=== PATIENT | male | born 1970 | race Caucasian/White ===

== ENCOUNTER → 2019-03-13 | Outpatient (CLI) | payer OTHER ==
[~2019-03-13] MED LIST: AMLO5TAB9 PO; ASPI-808 PO; CEPH500C PO; IBUP-2055 PO; LISI-596 PO; LISI10TA2 PO; SIMV10TA PO
[2019-03-13 10:21] LABS: AMPHETAMINE SCREEN, URINE NEGATIVE (NEGATIVE); BARBITURATE SCREEN URINE NEGATIVE (NEGATIVE); BENZODIAZEPINES SCREEN URINE POSITIVE (NEGATIVE); CANNABINOID SCREEN, URINE POSITIVE (NEGATIVE); COCAINE SCREEN URINE NEGATIVE (NEGATIVE); METHADONE STAT NEGATIVE (NEGATIVE); METHAMPHETAMINE SCREEN URINE S NEGATIVE (NEGATIVE); OPIATE SCREEN URINE POSITIVE (NEGATIVE); OXYCODONE STAT NEGATIVE (NEGATIVE); PROPOXYPHENE STAT NEGATIVE (NEGATIVE); TRICYCLIC ANTIDEPRESSANTS SCRE NEGATIVE (NEGATIVE)
== END ==
LOC: LAB 09:44
PROVIDERS: ATTEND Family Medicine
DX: Z51.81 Encounter for therapeutic drug level monitoring (principal); Z79.899 Other long term (current) drug therapy
CPT/HCPCS: 80306

== ENCOUNTER → 2021-08-27 | Outpatient (CLI) | payer BC, OTHER ==
[~2021-08-27] MED LIST changes: +AMLO-250 PO; -AMLO5TAB9 PO; -IBUP-2055 PO; +IBUP-2473 PO
--- NOTE | 2021-08-27 12:48 | Diagnostic Imaging Report ---
INDICATION: Chronic right hip pain. FINDINGS: 2 views. There is a loss of joint space with [id number] appearance along the superior weightbearing surface of femoral head and acetabulum. There are considerable hypertrophic bony changes along the base of femoral head consistent with chronic impingement. Also hypertrophic change along the inferior aspect of the acetabulum. No fractures are demonstrated. No soft tissue calcifications about the hip. IMPRESSION: There is moderate severe arthritic change noted with right hip. Dictated by: Dictated on workstation # [id number]
== END ==
LOC: RAD 10:40
PROVIDERS: ATTEND Family Medicine
DX: M16.11 Unilateral primary osteoarthritis, right hip (principal)
CPT/HCPCS: 73502

== ENCOUNTER → 2023-08-01 | Outpatient (CLI) | payer BC ==
[~2023-08-01] MED LIST changes: +SIMV-332 PO; -SIMV10TA PO
--- NOTE | 2023-08-01 17:49 | Diagnostic Imaging Report ---
EXAMINATION: Right hip unilateral 2 or 3 views (w/pelvis when done) HISTORY: Right hip pain. COMPARISON: 08/27/2022 FINDINGS: There is severe hip osteoarthritis. No fracture. No dislocation. No significant change from the prior exam. IMPRESSION: 1. Unchanged severe right hip osteoarthritis. Dictated by: Dictated on workstation # [id number]
== END ==
LOC: RAD 12:11
PROVIDERS: ATTEND Family Medicine
DX: M16.11 Unilateral primary osteoarthritis, right hip (principal)
CPT/HCPCS: 73502